=== PATIENT | female | born 1965 ===

== ENCOUNTER 2020-11-23 12:20 | Emergency (ER) | payer OTHER ==
[~2020-11-23] VITALS: Ht 165.1 cm; Wt 109.5 kg
[2020-11-23 12:31] VITALS: BP 116/54
--- NOTE | 2020-11-23 13:12 | NUR ---
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
--- NOTE | 2020-11-23 13:49 | NUR ---
PT REPORTS THAT HER RIDE IS HERE AND LEFT.
== END 2020-11-23 13:51 ==
LOC: ED 12:30
DX: B34.9 Viral infection, unspecified (principal); Z20.822 Contact with and (suspected) exposure to COVID-19; R06.02 Shortness of breath
CPT/HCPCS: 71045; 99284; U0003; U0005